=== PATIENT | male | born 1980 | race Caucasian/White ===

== ENCOUNTER 2017-01-18 12:32 | Emergency (ER) | payer OTHER | END 2017-01-18 15:35 | disposition home or self-care (01) | LOC: ER 12:32 | DX: S33.5XXA Sprain of ligaments of lumbar spine, initial encounter (principal); X50.0XXA Overexertion from strenuous movement or load, initial encounter; F17.210 Nicotine dependence, cigarettes, uncomplicated | CPT/HCPCS: 72100; 96372; 99283-25 ==